=== PATIENT | male | born 1955 | race Caucasian/White ===

== ENCOUNTER → 2016-06-24 | Day surgery (SDC) | payer MEDICARE, MEDICAID ==
[~2016-06-24] MED LIST: *morphine SULFATE 8 MG/ML PERIprocedure ONLY ONE; ACETAMINOPHEN 1000 MG/100 ML VIAL IV ONE; AMLO10TA2 PO; ASPI1TAB69 PO; CARV25TA PO; FAMOTIDINE 20 MG/2 ML VIAL ONE; HYDR-3580 PO; INSULIN HUMAN REGULAR 1,000 UNITS/10 ML VIAL SQ PRN; LACTATED RINGER'S 1000 ML IV SCH; METOPROLOL TARTRATE 25 MG TAB PO PRN; MIDAZOLAM HCL 2 MG/2 ML VIAL ONE; NEOSTIGMINE 3 MG/3 ML SYR IV ONE; ONDANSETRON HCL 4 MG/2 ML VIAL IV PUSH ONE; PARO20TA2 PO; PROPOFOL 200 MG/20 ML AMP IV ONE; SODIUM CHLORID 0.9% 500 ML IV SCH; TRIA55SP EACH NARE; ZOLP5TAB3 PO; ceFAZolin 2 GM PREMIX 50 ML ONE; ePHEDrine/NS 25 MG/5 ML SYR IV ONE; fentaNYL CITRATE 250 MCG/5 ML AMP ONE; oxyCODONE/ACETAMINOPHEN 5 MG/325 MG TAB ONE
[2016-06-24 11:30] VITALS: BP 153/82; PULSE 95; RESP 20; TEMP 98.5; O2SAT 95
[2016-06-24 12:20] LABS: AUTOMATED NEUTROPHIL # 6.8 TH/MM3 (1.8-7.7); BASOPHIL # 0.1 TH/MM3 (0-0.2); BASOPHIL % 0.6 % (0.0-2.0); EOSINOPHIL # 0.2 TH/MM3 (0-0.4); EOSINOPHIL % 1.9 % (0.0-4.0); HEMATOCRIT 48.8 % (39.0-51.0); HEMO FLAGS DIFF FINAL; LYMPH % 25.4 % (9.0-44.0); LYMPHOCYTE # 2.7 TH/MM3 (1.0-4.8); MEAN CELL VOLUME 89.4 FL (80.0-100.0); MEAN CORPUSCULAR HEMOGLOBIN 31.2 PG (27.0-34.0); MEAN CORPUSCULAR HGB CONC 34.9 % (32.0-36.0); NEUT % 64.1 % (16.0-70.0); PLATELET COUNT 230 TH/MM3 (150-450); RED BLOOD COUNT 5.45 MIL/MM3 (4.50-5.90); RED CELL DISTRIBUTION WIDTH 13.2 % (11.6-17.2); WHITE BLOOD COUNT 10.7 TH/MM3 (4.0-11.0)
[2016-06-24 12:37] LABS: ALT (GPT) 32 U/L (12-78); ANION GAP 8 MEQ/L (5-15); AST (GOT) 21 U/L (15-37); BICARBONATE 26.5 MEQ/L (21.0-32.0); BLOOD UREA NITROGEN 10 MG/DL (7-18); CHLORIDE 107 MEQ/L (98-107); GLOMERULAR FILTRATION RATE 91 ML/MIN (>89); SODIUM (NA) 141 MEQ/L (136-145)
[2016-06-24 12:39] LABS: ALKALINE PHOSPHATASE 65 U/L (45-117); TOTAL BILIRUBIN ADULT 0.6 MG/DL (0.2-1.0)
[2016-06-24 16:10] VITALS: BP 131/76; PULSE 67; RESP 16; TEMP 98.5; O2SAT 96
--- NOTE | 2016-06-24 23:36 | EKG ---
Date Performed: 06/24/2016 Time Performed: 11:18:51 PTAGE: 61 years EKG: Sinus rhythm MARKED LEFT AXIS DEVIATION POSSIBLE RIGHT VENTRICULAR CONDUCTION DELAY NONSPECIFIC T-WAVE ABNORMALIT Y ABNORMAL ECG PREVIOUS TRACING : 08/16/2013 15.17 Compared to prior tracing no significant change DOCTOR: Matti Chen Interpretating Date/Time 06/24/2016 23:34:18
--- NOTE | 2016-06-25 11:00 | MP ---
cc: FELIPA MCGEE M.D. DATE OF SURGERY 06/24/2016 PREOPERATIVE DIAGNOSIS Ventral abdominal hernia. POSTOPERATIVE DIAGNOSIS Ventral abdominal hernia. PROCEDURE Repair of ventral hernia with mesh. ANESTHESIA General endotracheal SURGEON Dr. Mcgee ESTIMATED BLOOD LOSS Minimal OPERATIVE FINDINGS This patient had a small ventral hernia just superior to his umbilicus in a transverse incision. The patient's hernia was approximately 3 cm in diameter. Repair was undertaken and the mesh was placed over the top of the repair. OPERATIVE TECHNIQUE The patient was placed on the table in the supine position. After adequate general endotracheal anesthesia, the abdomen was prepped and draped in the usual manner. A transverse incision was made in his previous transverse supraumbilical incision in the middle of his abdomen right over the hernia. The hernia itself was approximately 3 cm in diameter. The hernia sac was entered and the omentum was stuck round circumferentially and this was all dissected free from the anterior abdominal wall. No bowel was stuck against the abdominal wall and once the anterior abdominal wall was cleared of omental adhesions. The fascia was palpated medially and laterally. Laterally there was another small hernia presence so the fascial incision was extended laterally. Medially there was no other hernia, but inferiorly there was a small hernia just above with umbilicus. This rim of fascia was excised and then the fascia was cleared above the fascia so that the mesh could ultimately be placed as well. Once the fascia was cleared and the hernia sac was excised, the fascia was closed transversely once again with a double-stranded #1 PDS suture in a simple running manner fully closing the fascia. Next, a 4 inch x 6 inch Bard polypropylene mesh was cut to fit shortening the mesh to about 4 inches and narrowing it slightly to fit. The mesh was then sutured into place with a #1 Prolene suture in a simple running manner using two separate Prolene to sutured it into place. Once this was done, the wound was irrigated thoroughly with a liter of saline solution, aspirated dry and then some subcutaneous 3-0 Vicryl sutures were used to close the space and the skin was closed with running 3-0 Vicryl subcuticular suture and a dressing was applied. Sponge, needle and a counts were reported as correct. The estimated blood loss was minimal. The patient tolerated the procedure well and a dressing was applied as was an abdominal binder. The patient left the operating room in good condition. MD SHANKAR Couch/NAKUL /3:06 PM /10:48 AM
== END | disposition home or self-care (01) ==
LOC: HSDC 10:53
PROVIDERS: ATTEND Colon & Rectal Surgery
DX: K43.9 Ventral hernia without obstruction or gangrene (principal); R94.31 Abnormal electrocardiogram [ECG] [EKG]
CPT/HCPCS: 00752; 49560; 49568; 80053; 85025; 88302; 93005; C1781; J0131; J0690; J2250; J2270; J2405; J2710; J3010; J7120

== ENCOUNTER → 2016-08-05 | Outpatient (CLI) | payer MEDICARE, MEDICAID ==
[~2016-08-05] MED LIST changes: -*morphine SULFATE 8 MG/ML PERIprocedure ONLY ONE; -ACETAMINOPHEN 1000 MG/100 ML VIAL IV ONE; -FAMOTIDINE 20 MG/2 ML VIAL ONE; -INSULIN HUMAN REGULAR 1,000 UNITS/10 ML VIAL SQ PRN; -LACTATED RINGER'S 1000 ML IV SCH; -METOPROLOL TARTRATE 25 MG TAB PO PRN; -MIDAZOLAM HCL 2 MG/2 ML VIAL ONE; -NEOSTIGMINE 3 MG/3 ML SYR IV ONE; -ONDANSETRON HCL 4 MG/2 ML VIAL IV PUSH ONE; -PROPOFOL 200 MG/20 ML AMP IV ONE; -SODIUM CHLORID 0.9% 500 ML IV SCH; -ceFAZolin 2 GM PREMIX 50 ML ONE; -ePHEDrine/NS 25 MG/5 ML SYR IV ONE; -fentaNYL CITRATE 250 MCG/5 ML AMP ONE; -oxyCODONE/ACETAMINOPHEN 5 MG/325 MG TAB ONE
== END ==
LOC: CLAB 09:34
PROVIDERS: ATTEND Colon & Rectal Surgery
DX: Z85.038 Personal history of other malignant neoplasm of large intestine (principal)
CPT/HCPCS: 36415; 82378